=== PATIENT | male | born 1950 | race Hispanic/Latino ===

== ENCOUNTER 2019-09-19 14:18 | Inpatient (IN) | payer MEDICARE ==
[2019-09-19] MEDS ORDERED: MELATONIN 5 MG TAB PO PRN (14:31)
[2019-09-19] MEDS ORDERED: ZIPRASIDONE MESYLATE 20 MG VIAL IM PRN (14:31)
[2019-09-19] MEDS ORDERED: ALPRAZolam 0.5 MG TAB PO PRN (14:33)
[2019-09-19 21:34] LABS: Hematocrit 41.8 % (35.5-45.6); Hemoglobin 13.5 gm/dl (11.8-15.2); Mean Corpuscular HGB Conc 32 % (32-34); Mean Corpuscular Volume 105 fl (84-94); Platelet Count 239 K/mm3 (140-440); Red Blood Count 3.98 M/mm3 (3.65-5.03); Red Cell Distribution Width 13.7 % (13.2-15.2)
[2019-09-19 21:55] LABS: Alanine Aminotransferase 15 units/L (7-56); Albumin 3.3 g/dL (3.9-5); BUN/Creatinine Ratio 16; Blood Urea Nitrogen 14 mg/dL (9-20); Calcium 9.4 mg/dL (8.4-10.2); Chol/HDL Ratio 3.04 %; HDL Cholesterol 49 mg/dL (40-59); Hemolysis Index 14; LDL Cholesterol,Direct 92 mg/dL (50-130)
[2019-09-19 22:01] LABS: Bilirubin,Urine NEG (Negative); Blood,Urine NEG (Negative); Color,Urine Yellow (Yellow); Mucus,Urine FEW /HPF; Protein,Urine <15 mg/dL mg/dL (Negative); Urobilinogen,Urine < 2.0 mg/dL (<2.0); WBC,Urine < 1.0 /HPF (0.0-6.0)
[2019-09-19] MEDS: DOXEPIN 10 MG CAP PO SCH (22:06)
[2019-09-19 22:21] LABS: Basophils % (Manual) 0 % (0.0-1.8); Total Cells Counted 100
[2019-09-19 22:22] LABS: Anisocytosis 1+; Platelet Estimate Consistent w Auto
[2019-09-20] MEDS ORDERED: ALPRAZolam 0.5 MG TAB PO PRN (08:46)
--- NOTE | 2019-09-20 08:52 | History and Physical Report ---
GP History & Physical - History of Present Illness Date of admission: 09/19/19 Date of Examination: 09/20/19 Reason for Admission: Danger to self, Severe anxiety/depression History of Present Illness: Finesse Trimble is a 69y/o male patient who states he was admitted for "taking some pills." The patient says it was an "attempt to take my life." He is a/o x 4. He is dressed appropriately. He is talkative and pleasant. He makes good eye contact. He is calm and cooperative. Mr. Trimble says he's had "a number of setbacks medically." He says "because of this I OD intentional." He says "I do feel it was a big mistake, but I do think about dying and the afterlife." The patient denies ever attempting suicide or self harm behaviors in the past. He denies any illicit drug use, nicotine or alcohol use. He also denies any outpatient psychiatric treatment. The patient says he has a history of "depression" and he sees his "primary doctor to manage it." He says he is "somewhat depressed now and gets emotional talking about his health." The rubi ent states "I'm really anxious about the cancer." PAST PSYCHIATRIC HISTORY: Diagnoses: Depression, Anxiety Suicide attempts or Self-harm behavior: this time only Prior psychiatric hospitalizations: Denies Substance Abuse history: Denies Previous psychiatric medications tried: bety Meyers Outpatient treatment: Primary PAST MEDICAL HISTORY: Colon Cancer, HIV, BPH, HTN Family Psychiatric History None reported SOCIAL HISTORY Marital Status: Single Living Arrangements: Lives alone Employment Status: Retired Access to guns/weapons: Denied Education: 2 years of college History of Abuse: Denies Legal History: Denies ROS: Constitutional: Negative for weight loss ENT: Negative for stridor Respiratory: Negative for cough or hemoptysis All other systems reviewed and are negative MSE Appearance: Dressed appropriately, good eye contact Behavior: calm and cooperative Mood: "somewhat depressed" Affect: Congruent Thought Process: goal directed Speech: normal tone and pace Thought Content Suicidal: Suicide attempt, passive thoughts at present Homicidal: Denies Hallucinations: Denies Delusions: Denies Consciousness: Alert Cognition/Memory: Good Insight/Judgment: Limited Diagnoses: Diagnoses: Major Depressive Disorder, Severe, w/o Psychotic Features Treatment Plan Due to the psychiatric conditions and treatment listed in the Assessment and Plan - the patient requires continued hospitalization. Will continue inpatient treatment to allow for medication adjustment and monitoring. Will continue q15 min safety checks. Will encourage the use of environmental modifications and non-pharmacologic approaches for the management of behavioral and psychological symptoms. Medication adjustment made today Will continue current psych medications Monitor for medication side effects. The patient will continue on medications for physical illnesses, and Hospitalist will closely monitor these Continue intensive physical and occupational therapies. Monitor patient's mood, sleep, appetite, and behavior closely. Encourage patient to participate in individual and group therapeutic sessions on the lay. Will provide a safe and therapeutic environment for patient. This is an acknowledgement statement that Destinee Trimble is a 69y/o male who requires inpatient psychiatric admission for treatment which could reasonably be expected to improve the patient's condition for Major Depressive Disorder, Severe with a Suicidal Attempt. Estimated period of time patient will need to remain in the hospital: [7 ] Legal Status: Voluntary Reaction to Hospitalization: Accepting Medications and Allergies Allergies Allergy/AdvReac Type Severity Reaction Status Date / Time No Known Allergies Allergy Unverified 09/19/19 14:20 Home Medications Medication Instructions Recorded Confirmed Last Taken Type Ambien 10 mg PO HS 09/20/19 09/20/19 Unknown History Ciprofloxacin HCl 500 mg PO BID 09/20/19 09/20/19 Unknown History Descovy 200-25 mg Tablet 1 tab PO DAILY 09/20/19 09/20/19 Unknown History Eliquis 5 mg PO BID 09/20/19 09/20/19 Unknown History Lamictal 25 mg PO DAILY 09/20/19 09/20/19 Unknown History Losartan 25 mg PO DAILY 09/20/19 09/20/19 Unknown History Metoprolol Succinate 25 mg PO DAILY 09/20/19 09/20/19 Unknown History Metronidazole 500 mg PO Q8HR MDD 21 TABLETS 09/20/19 09/20/19 Unknown History Mirtazapine 7.5 mg PO QHS 09/20/19 09/20/19 Unknown History Pantoprazole Sodium 40 mg PO DAILY 09/20/19 09/20/19 Unknown History Sertraline 50 mg PO DAILY 09/20/19 09/20/19 Unknown History Tivicay 50 mg PO DAILY 09/20/19 09/20/19 Unknown History Xanax TAB 0.5 mg PO BID PRN 09/20/19 09/20/19 Unknown History Active Meds: Active Medications Alprazolam (Xanax) 0.5 mg PO BID PRN PRN Reason: Anxiety Apixaban (Eliquis) 5 mg PO Q12HR ALOK Doxepin HCl (Sinequan) 10 mg PO QHS ALOK Last Admin: 09/19/19 22:06 Dose: 10 mg Documented by: Melatonin (Melatonin) 5 mg PO QHS PRN PRN Reason: Sleep Last Admin: 09/19/19 22:06 Dose: 5 mg Documented by: Mirtazapine (Remeron) 7.5 mg PO QHS ALOK Miscellaneous Medication (Descovy 200-25 Mg Tablet) 1 tab PO DAILY ALOK Miscellaneous Medication (Lamictal) 25 mg PO DAILY ALOK Miscellaneous Medication (Losartan) 25 mg PO DAILY ALOK Miscellaneous Medication (Metoprolol Succinate) 25 mg PO DAILY ALOK Miscellaneous Medication (Pantoprazole Sodium) 40 mg PO DAILY ALOK Miscellaneous Medication (Tivicay) 50 mg PO DAILY ALOK Miscellaneous Medication (Xanax Tab) 0.5 mg PO BID PRN PRN Reason: Anxiety Sertraline HCl (Zoloft) 50 mg PO QDAY ALOK Ziprasidone (Geodon) 10 mg IM Q4H PRN PRN Reason: Agitation Results - Results Labs/Vitals: Laboratory Last Values WBC 13.0 K/mm3 (4.5-11.0) H 09/19/19 21:05 RBC 3.98 M/mm3 (3.65-5.03) 09/19/19 21:05 Hgb 13.5 gm/dl (11.8-15.2) 09/19/19 21:05 Hct 41.8 % (35.5-45.6) 09/19/19 21:05 MCV 105 fl (84-94) H 09/19/19 21:05 MCH 34 pg (28-32) H 09/19/19 21:05 MCHC 32 % (32-34) 09/19/19 21:05 RDW 13.7 % (13.2-15.2) 09/19/19 21:05 Plt Count 239 K/mm3 (140-440) 09/19/19 21:05 Lymph # Modeling Analyst 09/19/19 21:05 Add Manual Diff Complete 09/19/19 21:05 Total Counted 100 09/19/19 21:05 Seg Neuts % (Manual) 53.0 % (40.0-70.0) 09/19/19 21:05 Band Neutrophils % 0 % 09/19/19 21:05 Lymphocytes % (Manual) 33.0 % (13.4-35.0) 09/19/19 21:05 Reactive Lymphs % (Man) 0 % 09/19/19 21:05 Monocytes % (Manual) 11.0 % (0.0-7.3) H 09/19/19 21:05 Eosinophils % (Manual) 3.0 % (0.0-4.3) 09/19/19 21:05 Basophils % (Manual) 0 % (0.0-1.8) 09/19/19 21:05 Metamyelocytes % 0 % 09/19/19 21:05 Myelocytes % 0 % 09/19/19 21:05 Promyelocytes % 0 % 09/19/19 21:05 Blast Cells % 0 % 09/19/19 21:05 Nucleated RBC % Not Reportable 09/19/19 21:05 Seg Neutrophils # Man 6.9 K/mm3 (1.8-7.7) 09/19/19 21:05 Band Neutrophils # 0.0 K/mm3 09/19/19 21:05 Lymphocytes # (Manual) 4.3 K/mm3 (1.2-5.4) 09/19/19 21:05 Abs React Lymphs (Man) 0.0 K/mm3 09/19/19 21:05 Monocytes # (Manual) 1.4 K/mm3 (0.0-0.8) H 09/19/19 21:05 Eosinophils # (Manual) 0.4 K/mm3 (0.0-0.4) 09/19/19 21:05 Basophils # (Manual) 0.0 K/mm3 (0.0-0.1) 09/19/19 21:05 Metamyelocytes # 0.0 K/mm3 09/19/19 21:05 Myelocytes # 0.0 K/mm3 09/19/19 21:05 Promyelocytes # 0.0 K/mm3 09/19/19 21:05 Blast Cells # 0.0 K/mm3 09/19/19 21:05 WBC Morphology Not Reportable 09/19/19 21:05 Hypersegmented Neuts Not Reportable 09/19/19 21:05 Hyposegmented Neuts Not Reportable 09/19/19 21:05 Hypogranular Neuts Not Reportable 09/19/19 21:05 Smudge Cells Not Reportable 09/19/19 21:05 Toxic Granulation Not Reportable 09/19/19 21:05 Toxic Vacuolation Not Reportable 09/19/19 21:05 Dohle Bodies Not Reportable 09/19/19 21:05 Pelger-Huet Anomaly Not Reportable 09/19/19 21:05 Mingo Rods Not Reportable 09/19/19 21:05 Platelet Estimate Consistent w auto 09/19/19 21:05 Clumped Platelets Not Reportable 09/19/19 21:05 Plt Clumps, EDTA Not Reportable 09/19/19 21:05 Large Platelets Not Reportable 09/19/19 21:05 Giant Platelets Not Reportable 09/19/19 21:05 Platelet Satelliting Not Reportable 09/19/19 21:05 Plt Morphology Comment Not Reportable 09/19/19 21:05 RBC Morphology Not Reportable 09/19/19 21:05 Dimorphic RBCs Not Reportable 09/19/19 21:05 Polychromasia Not Reportable 09/19/19 21:05 Hypochromasia Not Reportable 09/19/19 21:05 Poikilocytosis Not Reportable 09/19/19 21:05 Anisocytosis 1+ 09/19/19 21:05 Microcytosis Not Reportable 09/19/19 21:05 Macrocytosis Not Reportable 09/19/19 21:05 Spherocytes Not Reportable 09/19/19 21:05 Pappenheimer Bodies Not Reportable 09/19/19 21:05 Sickle Cells Not Reportable 09/19/19 21:05 Target Cells Not Reportable 09/19/19 21:05 Tear Drop Cells Not Reportable 09/19/19 21:05 Ovalocytes Not Reportable 09/19/19 21:05 Helmet Cells Not Reportable 09/19/19 21:05 Reddy-[place] Bodies Not Reportable 09/19/19 21:05 [place] Rings Not Reportable 09/19/19 21:05 [place] Cells Not Reportable 09/19/19 21:05 Bite Cells Not Reportable 09/19/19 21:05 Crenated Cell Not Reportable 09/19/19 21:05 Elliptocytes Not Reportable 09/19/19 21:05 Acanthocytes (Spur) Not Reportable 09/19/19 21:05 Rouleaux Not Reportable 09/19/19 21:05 Hemoglobin C Crystals Not Reportable 09/19/19 21:05 Schistocytes Not Reportable 09/19/19 21:05 Malaria parasites Not Reportable 09/19/19 21:05 Dennis Bodies Not Reportable 09/19/19 21:05 Hem Pathologist Commnt No 09/19/19 21:05 Sodium 140 mmol/L (137-145) 09/19/19 21:05 Potassium 4.4 mmol/L (3.6-5.0) 09/19/19 21:05 Chloride 100.7 mmol/L (98-107) 09/19/19 21:05 Carbon Dioxide 25 mmol/L (22-30) 09/19/19 21:05 Anion Gap 19 mmol/L 09/19/19 21:05 BUN 14 mg/dL (9-20) 09/19/19 21:05 Creatinine 0.9 mg/dL (0.8-1.5) 09/19/19 21:05 Estimated GFR > 60 ml/min 09/19/19 21:05 BUN/Creatinine Ratio 16 % 09/19/19 21:05 Glucose 145 mg/dL (75-100) H 09/19/19 21:05 POC Glucose 157 (70-105) H 09/19/19 22:02 Hemoglobin A1c 4.9 % (4-6) 09/19/19 21:05 Calcium 9.4 mg/dL (8.4-10.2) 09/19/19 21:05 Total Bilirubin 0.50 mg/dL (0.1-1.2) 09/19/19 21:05 AST 33 units/L (5-40) 09/19/19 21:05 ALT 15 units/L (7-56) 09/19/19 21:05 Alkaline Phosphatase 73 units/L (35-129) 09/19/19 21:05 Total Protein 7.5 g/dL (6.3-8.2) 09/19/19 21:05 Albumin 3.3 g/dL (3.9-5) L 02/21/20 21:05 Albumin/Globulin Ratio 0.8 % 09/19/19 21:05 Triglycerides 59 mg/dL (2-149) 09/19/19 21:05 Cholesterol 149 mg/dL (50-199) 09/19/19 21:05 LDL Cholesterol Direct 92 mg/dL (50-130) 09/19/19 21:05 HDL Cholesterol 49 mg/dL (40-59) 09/19/19 21:05 Cholesterol/HDL Ratio 3.04 % 09/19/19 21:05 TSH 4.370 mlU/mL (0.270-4.200) H 09/19/19 21:05 Urine Color Yellow (Yellow) 09/19/19 Unknown Urine Turbidity Clear (Clear) 09/19/19 Unknown Urine pH 8.0 (5.0-7.0) H 09/19/19 Unknown Ur Specific [place] 1.009 (1.003-1.030) 09/19/19 Unknown Urine Protein <15 mg/dl mg/dL (Negative) 09/19/19 Unknown Urine Glucose (UA) Neg mg/dL (Negative) 09/19/19 Unknown Urine Ketones Neg mg/dL (Negative) 09/19/19 Unknown Urine Blood Neg (Negative) 09/19/19 Unknown Urine Nitrite Neg (Negative) 09/19/19 Unknown Urine Bilirubin Neg (Negative) 09/19/19 Unknown Urine Urobilinogen < 2.0 mg/dL (<2.0) 09/19/19 Unknown Ur Leukocyte Esterase Neg (Negative) 09/19/19 Unknown Urine WBC (Auto) < 1.0 /HPF (0.0-6.0) 09/19/19 Unknown Urine RBC (Auto) 4.0 /HPF (0.0-6.0) 09/19/19 Unknown Urine Mucus Few /HPF 09/19/19 Unknown Last Vital Signs Temp 97.7 F 09/19/19 22:00 Pulse 64 09/19/19 22:00 Resp 18 09/19/19 22:00 BP 156/70 09/19/19 22:00 Pulse Ox 91 09/19/19 22:00 Physical Examination - Constitutional Vitals: Vital Signs Temp Pulse Resp BP Pulse Ox 97.7 F 64 18 156/70 91 09/19/19 22:00 09/19/19 22:00 09/19/19 22:00 09/19/19 22:00 09/19/19 22:00 Temperature -Last 24 Hours Temperature 97.7 F Mental Status Exam - Vital signs Last Vital Signs Temp 97.7 F 09/19/19 22:00 Pulse 64 09/19/19 22:00 Resp 18 09/19/19 22:00 BP 156/70 09/19/19 22:00 Pulse Ox 91 09/19/19 22:00 Physician Certification - Certification Statement Physician Certification Statement: This is an acknowledgement statement that FINESSE TRIMBLE is a 69 year old M who requires inpatient psychiatric admission for treatment which could reasonably be expected to improve the patient's condition for Estimated period of time patient will need to remain in the hospital: [ ] Plan for post-hospital care: [ ]
[2019-09-20] MEDS ORDERED: SERTRALINE 25 MG TAB PO SCH (10:00)
[2019-09-20] MEDS ORDERED: SERTRALINE 50 MG TAB PO SCH (10:00)
[2019-09-20] MEDS: APIXABAN 5 MG TAB PO SCH ×2 (10:21→21:46)
[2019-09-20] MEDS: lamoTRIgine 25 MG TAB PO SCH (10:21)
[2019-09-20] MEDS: SERTRALINE 50 MG TAB PO SCH (10:21)
[2019-09-20] MEDS: PANTOPRAZOLE 40 MG TAB PO SCH (10:21)
[2019-09-20] MEDS: METOPROLOL SUCCINATE XL 25 MG TAB PO SCH (10:22)
[2019-09-20] MEDS: LOSARTAN 25 MG TAB PO SCH (10:22)
[2019-09-20] MEDS: TIVICAY 50 MG PO SCH (10:23)
[2019-09-20] MEDS: DESCOVY PO SCH (10:24)
--- NOTE | 2019-09-20 11:43 | Consultation ---
History of Present Illness - Reason for Consult Consult date: 09/20/19 - History of Present Illness 69-year-old male with past medical history of major depression, cardiomyopathy, colon cancer, HIV, BPH and hypertension who presented to the [facility] psych unit with suicide attempt after attempting to take "some pills". The patient denies any complaints of chest pain or shortness of breath. No headache or visual disturbances. No cough or cold-like symptoms. No fever chills. Consultation was called for the hospitalist service for management of his above medical problems. Past History Past Medical History: HIV/AIDS, hypertension, other (Depression, BPH, colon cancer) Past Surgical History: Other (Rectal surgery) Social history: no significant social history Family history: no significant family history Medications and Allergies Allergies Allergy/AdvReac Type Severity Reaction Status Date / Time No Known Allergies Allergy Unverified 09/19/19 14:20 Home Medications Medication Instructions Recorded Confirmed Last Taken Type Ambien 10 mg PO HS 09/20/19 09/20/19 Unknown History Ciprofloxacin HCl 500 mg PO BID 09/20/19 09/20/19 Unknown History Descovy 200-25 mg Tablet 1 tab PO DAILY 09/20/19 09/20/19 Unknown History Eliquis 5 mg PO BID 09/20/19 09/20/19 Unknown History Lamictal 25 mg PO DAILY 09/20/19 09/20/19 Unknown History Losartan 25 mg PO DAILY 09/20/19 09/20/19 Unknown History Metoprolol Succinate 25 mg PO DAILY 09/20/19 09/20/19 Unknown History Metronidazole 500 mg PO Q8HR MDD 21 TABLETS 09/20/19 09/20/19 Unknown History Mirtazapine 7.5 mg PO QHS 09/20/19 09/20/19 Unknown History Pantoprazole Sodium 40 mg PO DAILY 09/20/19 09/20/19 Unknown History Sertraline 50 mg PO DAILY 09/20/19 09/20/19 Unknown History Tivicay 50 mg PO DAILY 09/20/19 09/20/19 Unknown History Xanax TAB 0.5 mg PO BID PRN 09/20/19 09/20/19 Unknown History Active Meds: Active Medications Alprazolam (Xanax) 0.5 mg PO BID PRN PRN Reason: Anxiety Apixaban (Eliquis) 5 mg PO Q12HR ALOK Last Admin: 09/20/19 10:21 Dose: 5 mg Documented by: Doxepin HCl (Sinequan) 10 mg PO QHS [facility] Last Admin: 09/19/19 22:06 Dose: 10 mg Documented by: Lamotrigine (Lamictal) 25 mg PO QDAY [facility] Last Admin: 09/20/19 10:21 Dose: 25 mg Documented by: Losartan Potassium (Cozaar) 25 mg PO QDAY [facility] Last Admin: 09/20/19 10:22 Dose: 25 mg Documented by: Melatonin (Melatonin) 5 mg PO QHS PRN PRN Reason: Sleep Last Admin: 09/19/19 22:06 Dose: 5 mg Documented by: Metoprolol Succinate (Metoprolol Xl) 25 mg PO QDAY [facility] Last Admin: 09/20/19 10:22 Dose: 25 mg Documented by: Mirtazapine (Remeron) 7.5 mg PO QHS [facility] Miscellaneous Medication (Descovy 200-25 Mg Tablet) 1 tab PO DAILY [facility] Last Admin: 09/20/19 10:24 Dose: 1 tab Documented by: Miscellaneous Medication (Tivicay) 50 mg PO DAILY [facility] Last Admin: 09/20/19 10:23 Dose: 50 mg Documented by: Pantoprazole Sodium (Protonix) 40 mg PO DAILY [facility] Last Admin: 09/20/19 10:21 Dose: 40 mg Documented by: Sertraline HCl (Zoloft) 100 mg PO QDAY [facility] Last Admin: 09/20/19 10:21 Dose: 100 mg Documented by: Ziprasidone (Geodon) 10 mg IM Q4H PRN PRN Reason: Agitation Review of Systems All systems: negative Exam - Constitutional Vitals: Temp Pulse Resp BP Pulse Ox 97.7 F 68 18 135/64 91 09/19/19 22:00 09/20/19 10:22 09/19/19 22:00 09/20/19 10:22 09/19/19 22:00 General appearance: Present: no acute distress, well-nourished - EENT Eyes: Present: PERRL ENT: hearing intact, clear oral mucosa - Neck Neck: Present: supple, normal ROM - Respiratory Respiratory effort: normal Respiratory: bilateral: CTA - Cardiovascular Heart Sounds: Present: S1 & S2. Absent: rub, click - Extremities Extremities: pulses symmetrical, No edema Peripheral Pulses: within normal limits - Abdominal General gastrointestinal: Present: soft, non-tender, non-distended, normal bowel sounds Male genitourinary: Present: normal - Integumentary Integumentary: Present: clear, warm, dry - Musculoskeletal Musculoskeletal: gait normal, strength equal bilaterally - Psychiatric Psychiatric: appropriate mood/affect, intact judgment & insight - Neurologic Neurologic: CNII-XII intact, moves all extremities Results - Labs CBC & Chem 7: 09/19/19 21:05 09/19/19 21:05 Labs: Abnormal lab results 09/19/19 09/19/19 09/19/19 Range/Units 21:05 21:05 21:05 WBC 13.0 H (4.5-11.0) K/mm3 MCV 105 H (84-94) fl MCH 34 H (28-32) pg Monocytes % (Manual) 11.0 H (0.0-7.3) % Monocytes # (Manual) 1.4 H (0.0-0.8) K/mm3 Glucose 145 H (75-100) mg/dL POC Glucose (70-105) Albumin 3.3 L (3.9-5) g/dL TSH 4.370 H (0.270-4.200) mlU/mL Urine pH (5.0-7.0) 09/19/19 09/19/19 Range/Units 22:02 Unknown WBC (4.5-11.0) K/mm3 MCV (84-94) fl MCH (28-32) pg Monocytes % (Manual) (0.0-7.3) % Monocytes # (Manual) (0.0-0.8) K/mm3 Glucose (75-100) mg/dL POC Glucose 157 H (70-105) Albumin (3.9-5) g/dL TSH (0.270-4.200) mlU/mL Urine pH 8.0 H (5.0-7.0) Assessment and Plan Major depression/suicide attempt. Continue per psychiatry. Hypertension. Resume antihypertensive medications. HIV. Continue medications. Cardiomyopathy. Continue medications and anticoagulation.
[2019-09-20] MEDS: MIRTAZAPINE 15 MG TAB PO SCH (21:38)
[2019-09-20] MEDS: DOXEPIN 10 MG CAP PO SCH ×2 (21:38→21:43)
[2019-09-21] MEDS: APIXABAN 5 MG TAB PO SCH ×2 (09:32→21:52)
[2019-09-21] MEDS: DESCOVY PO SCH (09:33)
[2019-09-21] MEDS: TIVICAY 50 MG PO SCH (09:33)
[2019-09-21] MEDS: lamoTRIgine 25 MG TAB PO SCH (09:34)
[2019-09-21] MEDS: SERTRALINE 50 MG TAB PO SCH (09:34)
[2019-09-21] MEDS: PANTOPRAZOLE 40 MG TAB PO SCH (09:34)
[2019-09-21] MEDS: LOSARTAN 25 MG TAB PO SCH (09:36)
[2019-09-21] MEDS: METOPROLOL SUCCINATE XL 25 MG TAB PO SCH (09:36)
--- NOTE | 2019-09-21 09:37 | Progress Note ---
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 He is pleasant, calm and cooperative. He makes good eye contact. He says his "night went pretty good." He says his mood "is actually pretty good today, but at times depressed." The patient says his appetite is "okay." He says "I don't finish my food. It's too much." He denies hallucinations of any kind. When asking about thoughts of self harm or thoughts of dying, the patient replied "well, I know I talked about it yesterday, but today I don't feel that way." He says "I know it's my situation that makes me think about it sometimes." He says "too much hits at one time." Reason for continued inpatient treatment: The patient still has depression, and appears to have passive thoughts of dying on and off. ROS: Constitutional: Negative for weight loss ENT: Negative for stridor Respiratory: Negative for cough or hemoptysis All other systems reviewed and are negative MSE Appearance: Dressed appropriately, good eye contact Behavior: calm and cooperative Mood: "somewhat depressed" Affect: Congruent Thought Process: goal directed Speech: normal tone and pace Thought Content Suicidal: Suicide attempt, passive thoughts at present Homicidal: Denies Hallucinations: Denies Delusions: Denies Consciousness: Alert Cognition/Memory: Good Insight/Judgment: Limited Diagnoses: Diagnoses: Major Depressive Disorder, Severe, w/o Psychotic Features Treatment Plan Due to the psychiatric conditions and treatment listed in the Assessment and Plan - the patient requires continued hospitalization. Will continue inpatient treatment to allow for medication adjustment and monitoring. Will continue q15 min safety checks. Will encourage the use of environmental modifications and non-pharmacologic approaches for the management of behavioral and psychological symptoms. Medication adjustment made today: No changes made today. Increased Zoloft to 100mg po daily yesterday to improve depressive symptoms Will continue current psych medications Monitor for medication side effects. The patient will continue on medications for physical illnesses, and Hospitalist will closely monitor these Continue intensive physical and occupational therapies. Monitor patient's mood, sleep, appetite, and behavior closely. Encourage patient to participate in individual and group therapeutic sessions on the lay. Will provide a safe and therapeutic environment for patient. Medications and Allergies Allergies Allergy/AdvReac Type Severity Reaction Status Date / Time No Known Allergies Allergy Unverified 09/19/19 14:20 Home Medications Medication Instructions Recorded Confirmed Last Taken Type Ambien 10 mg PO HS 09/20/19 09/20/19 Unknown History Ciprofloxacin HCl 500 mg PO BID 09/20/19 09/20/19 Unknown History Descovy 200-25 mg Tablet 1 tab PO DAILY 09/20/19 09/20/19 Unknown History Eliquis 5 mg PO BID 09/20/19 09/20/19 Unknown History Lamictal 25 mg PO DAILY 09/20/19 09/20/19 Unknown History Losartan 25 mg PO DAILY 09/20/19 09/20/19 Unknown History Metoprolol Succinate 25 mg PO DAILY 09/20/19 09/20/19 Unknown History Metronidazole 500 mg PO Q8HR MDD 21 TABLETS 09/20/19 09/20/19 Unknown History Mirtazapine 7.5 mg PO QHS 09/20/19 09/20/19 Unknown History Pantoprazole Sodium 40 mg PO DAILY 09/20/19 09/20/19 Unknown History Sertraline 50 mg PO DAILY 09/20/19 09/20/19 Unknown History Tivicay 50 mg PO DAILY 09/20/19 09/20/19 Unknown History Xanax TAB 0.5 mg PO BID PRN 09/20/19 09/20/19 Unknown History Active Meds: Active Medications Alprazolam (Xanax) 0.5 mg PO BID PRN PRN Reason: Anxiety Apixaban (Eliquis) 5 mg PO Q12HR [facility] Last Admin: 09/20/19 21:46 Dose: 5 mg Documented by: Doxepin HCl (Sinequan) 10 mg PO QHS [facility] Last Admin: 09/20/19 21:43 Dose: 10 mg Documented by: Lamotrigine (Lamictal) 25 mg PO QDAY [facility] Last Admin: 09/20/19 10:21 Dose: 25 mg Documented by: Losartan Potassium (Cozaar) 25 mg PO QDAY [facility] Last Admin: 09/20/19 10:22 Dose: 25 mg Documented by: Melatonin (Melatonin) 5 mg PO QHS PRN PRN Reason: Sleep Last Admin: 09/19/19 22:06 Dose: 5 mg Documented by: Metoprolol Succinate (Metoprolol Xl) 25 mg PO QDAY [facility] Last Admin: 09/20/19 10:22 Dose: 25 mg Documented by: Mirtazapine (Remeron) 7.5 mg PO QHS [facility] Last Admin: 09/20/19 21:38 Dose: 7.5 mg Documented by: Miscellaneous Medication (Descovy 200-25 Mg Tablet) 1 tab PO DAILY [facility] Last Admin: 09/20/19 10:24 Dose: 1 tab Documented by: Miscellaneous Medication (Tivicay) 50 mg PO DAILY [facility] Last Admin: 09/20/19 10:23 Dose: 50 mg Documented by: Pantoprazole Sodium (Protonix) 40 mg PO DAILY [facility] Last Admin: 09/20/19 10:21 Dose: 40 mg Documented by: Sertraline HCl (Zoloft) 100 mg PO QDAY [facility] Last Admin: 09/20/19 10:21 Dose: 100 mg Documented by: Ziprasidone (Geodon) 10 mg IM Q4H PRN PRN Reason: Agitation Results - Results Labs/Vitals: Laboratory Last Values WBC 13.0 K/mm3 (4.5-11.0) H 09/19/19 21:05 RBC 3.98 M/mm3 (3.65-5.03) 09/19/19 21:05 Hgb 13.5 gm/dl (11.8-15.2) 09/19/19 21:05 Hct 41.8 % (35.5-45.6) 09/19/19 21:05 MCV 105 fl (84-94) H 09/19/19 21:05 MCH 34 pg (28-32) H 09/19/19 21:05 MCHC 32 % (32-34) 09/19/19 21:05 RDW 13.7 % (13.2-15.2) 09/19/19 21:05 Plt Count 239 K/mm3 (140-440) 09/19/19 21:05 Lymph # Psychic Reader 09/19/19 21:05 Add Manual Diff Complete 09/19/19 21:05 Total Counted 100 09/19/19 21:05 Seg Neuts % (Manual) 53.0 % (40.0-70.0) 09/19/19 21:05 Band Neutrophils % 0 % 09/19/19 21:05 Lymphocytes % (Manual) 33.0 % (13.4-35.0) 09/19/19 21:05 Reactive Lymphs % (Man) 0 % 09/19/19 21:05 Monocytes % (Manual) 11.0 % (0.0-7.3) H 09/19/19 21:05 Eosinophils % (Manual) 3.0 % (0.0-4.3) 09/19/19 21:05 Basophils % (Manual) 0 % (0.0-1.8) 09/19/19 21:05 Metamyelocytes % 0 % 09/19/19 21:05 Myelocytes % 0 % 09/19/19 21:05 Promyelocytes % 0 % 09/19/19 21:05 Blast Cells % 0 % 09/19/19 21:05 Nucleated RBC % Not Reportable 09/19/19 21:05 Seg Neutrophils # Man 6.9 K/mm3 (1.8-7.7) 09/19/19 21:05 Band Neutrophils # 0.0 K/mm3 09/19/19 21:05 Lymphocytes # (Manual) 4.3 K/mm3 (1.2-5.4) 09/19/19 21:05 Abs React Lymphs (Man) 0.0 K/mm3 09/19/19 21:05 Monocytes # (Manual) 1.4 K/mm3 (0.0-0.8) H 09/19/19 21:05 Eosinophils # (Manual) 0.4 K/mm3 (0.0-0.4) 09/19/19 21:05 Basophils # (Manual) 0.0 K/mm3 (0.0-0.1) 09/19/19 21:05 Metamyelocytes # 0.0 K/mm3 09/19/19 21:05 Myelocytes # 0.0 K/mm3 09/19/19 21:05 Promyelocytes # 0.0 K/mm3 09/19/19 21:05 Blast Cells # 0.0 K/mm3 09/19/19 21:05 WBC Morphology Not Reportable 09/19/19 21:05 Hypersegmented Neuts Not Reportable 09/19/19 21:05 Hyposegmented Neuts Not Reportable 09/19/19 21:05 Hypogranular Neuts Not Reportable 09/19/19 21:05 Smudge Cells Not Reportable 09/19/19 21:05 Toxic Granulation Not Reportable 09/19/19 21:05 Toxic Vacuolation Not Reportable 09/19/19 21:05 Dohle Bodies Not Reportable 09/19/19 21:05 Pelger-Huet Anomaly Not Reportable 09/19/19 21:05 Mingo Rods Not Reportable 09/19/19 21:05 Platelet Estimate Consistent w auto 09/19/19 21:05 Clumped Platelets Not Reportable 09/19/19 21:05 Plt Clumps, EDTA Not Reportable 09/19/19 21:05 Large Platelets Not Reportable 09/19/19 21:05 Giant Platelets Not Reportable 09/19/19 21:05 Platelet Satelliting Not Reportable 09/19/19 21:05 Plt Morphology Comment Not Reportable 09/19/19 21:05 RBC Morphology Not Reportable 09/19/19 21:05 Dimorphic RBCs Not Reportable 09/19/19 21:05 Polychromasia Not Reportable 09/19/19 21:05 Hypochromasia Not Reportable 09/19/19 21:05 Poikilocytosis Not Reportable 09/19/19 21:05 Anisocytosis 1+ 09/19/19 21:05 Microcytosis Not Reportable 09/19/19 21:05 Macrocytosis Not Reportable 09/19/19 21:05 Spherocytes Not Reportable 09/19/19 21:05 Pappenheimer Bodies Not Reportable 09/19/19 21:05 Sickle Cells Not Reportable 09/19/19 21:05 Target Cells Not Reportable 09/19/19 21:05 Tear Drop Cells Not Reportable 09/19/19 21:05 Ovalocytes Not Reportable 09/19/19 21:05 Helmet Cells Not Reportable 09/19/19 21:05 [place] Bodies Not Reportable 09/19/19 21:05 [place] Rings Not Reportable 09/19/19 21:05 [place] Cells Not Reportable 09/19/19 21:05 Bite Cells Not Reportable 09/19/19 21:05 Crenated Cell Not Reportable 09/19/19 21:05 Elliptocytes Not Reportable 09/19/19 21:05 Acanthocytes (Spur) Not Reportable 09/19/19 21:05 Rouleaux Not Reportable 09/19/19 21:05 Hemoglobin C Crystals Not Reportable 09/19/19 21:05 Schistocytes Not Reportable 09/19/19 21:05 Malaria parasites Not Reportable 09/19/19 21:05 [place] Bodies Not Reportable 09/19/19 21:05 Hem Pathologist Commnt No 09/19/19 21:05 Sodium 140 mmol/L (137-145) 09/19/19 21:05 Potassium 4.4 mmol/L (3.6-5.0) 09/19/19 21:05 Chloride 100.7 mmol/L (98-107) 09/19/19 21:05 Carbon Dioxide 25 mmol/L (22-30) 09/19/19 21:05 Anion Gap 19 mmol/L 09/19/19 21:05 BUN 14 mg/dL (9-20) 09/19/19 21:05 Creatinine 0.9 mg/dL (0.8-1.5) 09/19/19 21:05 Estimated GFR > 60 ml/min 09/19/19 21:05 BUN/Creatinine Ratio 16 % 09/19/19 21:05 Glucose 145 mg/dL (75-100) H 09/19/19 21:05 POC Glucose 157 (70-105) H 09/19/19 22:02 Hemoglobin A1c 4.9 % (4-6) 09/19/19 21:05 Calcium 9.4 mg/dL (8.4-10.2) 09/19/19 21:05 Total Bilirubin 0.50 mg/dL (0.1-1.2) 09/19/19 21:05 AST 33 units/L (5-40) 09/19/19 21:05 ALT 15 units/L (7-56) 09/19/19 21:05 Alkaline Phosphatase 73 units/L (35-129) 09/19/19 21:05 Total Protein 7.5 g/dL (6.3-8.2) 09/19/19 21:05 Albumin 3.3 g/dL (3.9-5) L 09/19/19 21:05 Albumin/Globulin Ratio 0.8 % 09/19/19 21:05 Triglycerides 59 mg/dL (2-149) 09/19/19 21:05 Cholesterol 149 mg/dL (50-199) 09/19/19 21:05 LDL Cholesterol Direct 92 mg/dL (50-130) 09/19/19 21:05 HDL Cholesterol 49 mg/dL (40-59) 09/19/19 21:05 Cholesterol/HDL Ratio 3.04 % 09/19/19 21:05 TSH 4.370 mlU/mL (0.270-4.200) H 09/19/19 21:05 Urine Color Yellow (Yellow) 09/19/19 Unknown Urine Turbidity Clear (Clear) 09/19/19 Unknown Urine pH 8.0 (5.0-7.0) H 09/19/19 Unknown Ur Specific [place] 1.009 (1.003-1.030) 09/19/19 Unknown Urine Protein <15 mg/dl mg/dL (Negative) 09/19/19 Unknown Urine Glucose (UA) Neg mg/dL (Negative) 09/19/19 Unknown Urine Ketones Neg mg/dL (Negative) 09/19/19 Unknown Urine Blood Neg (Negative) 09/19/19 Unknown Urine Nitrite Neg (Negative) 09/19/19 Unknown Urine Bilirubin Neg (Negative) 09/19/19 Unknown Urine Urobilinogen < 2.0 mg/dL (<2.0) 09/19/19 Unknown Ur Leukocyte Esterase Neg (Negative) 09/19/19 Unknown Urine WBC (Auto) < 1.0 /HPF (0.0-6.0) 09/19/19 Unknown Urine RBC (Auto) 4.0 /HPF (0.0-6.0) 09/19/19 Unknown Urine Mucus Few /HPF 09/19/19 Unknown Last Vital Signs Temp 97.7 F 09/19/19 22:00 Pulse 63 09/20/19 19:06 Resp 18 09/19/19 22:00 BP 119/61 09/20/19 19:06 Pulse Ox 97 09/21/19 09:09
[2019-09-21] MEDS: MIRTAZAPINE 15 MG TAB PO SCH (21:52)
[2019-09-21] MEDS: DOXEPIN 10 MG CAP PO SCH (21:52)
--- NOTE | 2019-09-22 09:32 | Progress Note ---
Subjective Date of service: 09/22/19 Principal diagnosis: Major Depressive Disorder, Severe w/o Psychotic Features Subjective Comment: During my interview with the patient this morning, he is lying in bed. Awake. Pleasant, calm and cooperative. He is a/o x 3. He says he's "good and feels a lot better." He says he "slept okay, but could have been better. He denies hallucinations of any kind. When asked about suicidal ideation or any self-harm thoughts, the patient states, "at the time it all just hit me so hard when they told me about the cancer." He says "I didn't know how to deal with that happening to me, I think I will be okay." When asking about any passive thoughts of dying, the patient says "I don't believe so." Reason for continued inpatient treatment: The patient has improved significantly, but appears to be uncertain at times. ROS: Constitutional: Negative for weight loss ENT: Negative for stridor Respiratory: Negative for cough or hemoptysis All other systems reviewed and are negative MSE Appearance: Dressed appropriately, good eye contact Behavior: calm and cooperative Mood: "good, alot better" Affect: Congruent Thought Process: goal directed Speech: normal tone and pace Thought Content Suicidal: Appears to be somewhat uncertain Homicidal: Denies Hallucinations: Denies Delusions: Denies Consciousness: Alert Cognition/Memory: Good Insight/Judgment: Limited Diagnoses: Diagnoses: Major Depressive Disorder, Severe, w/o Psychotic Features Treatment Plan Due to the psychiatric conditions and treatment listed in the Assessment and Plan - the patient requires continued hospitalization. Will continue inpatient treatment to allow for medication adjustment and monitoring. Will continue q15 min safety checks. Will encourage the use of environmental modifications and non-pharmacologic approaches for the management of behavioral and psychological symptoms. Medication adjustment made today: Zoloft was increased, 09/20. The patient seems to be improving from the increase. Will continue current psych medications Monitor for medication side effects. The patient will continue on medications for physical illnesses, and Hospitalist will closely monitor these Continue intensive physical and occupational therapies. Monitor patient's mood, sleep, appetite, and behavior closely. Encourage patient to participate in individual and group therapeutic sessions on the lay. Will provide a safe and therapeutic environment for patient. Medications and Allergies Allergies Allergy/AdvReac Type Severity Reaction Status Date / Time No Known Allergies Allergy Unverified 09/19/19 14:20 Home Medications Medication Instructions Recorded Confirmed Last Taken Type Ambien 10 mg PO HS 09/20/19 09/20/19 Unknown History Ciprofloxacin HCl 500 mg PO BID 09/20/19 09/20/19 Unknown History Descovy 200-25 mg Tablet 1 tab PO DAILY 09/20/19 09/20/19 Unknown History Eliquis 5 mg PO BID 09/20/19 09/20/19 Unknown History Lamictal 25 mg PO DAILY 09/20/19 09/20/19 Unknown History Losartan 25 mg PO DAILY 09/20/19 09/20/19 Unknown History Metoprolol Succinate 25 mg PO DAILY 09/20/19 09/20/19 Unknown History Metronidazole 500 mg PO Q8HR MDD 21 TABLETS 09/20/19 09/20/19 Unknown History Mirtazapine 7.5 mg PO QHS 09/20/19 09/20/19 Unknown History Pantoprazole Sodium 40 mg PO DAILY 09/20/19 09/20/19 Unknown History Sertraline 50 mg PO DAILY 09/20/19 09/20/19 Unknown History Tivicay 50 mg PO DAILY 09/20/19 09/20/19 Unknown History Xanax TAB 0.5 mg PO BID PRN 09/20/19 09/20/19 Unknown History Active Meds: Active Medications Alprazolam (Xanax) 0.5 mg PO BID PRN PRN Reason: Anxiety Apixaban (Eliquis) 5 mg PO Q12HR [facility] Last Admin: 09/21/19 21:52 Dose: 5 mg Documented by: Doxepin HCl (Sinequan) 10 mg PO QHS [facility] Last Admin: 09/21/19 21:52 Dose: 10 mg Documented by: Lamotrigine (Lamictal) 25 mg PO QDAY [facility] Last Admin: 09/21/19 09:34 Dose: 25 mg Documented by: Losartan Potassium (Cozaar) 25 mg PO QDAY [facility] Last Admin: 09/21/19 09:36 Dose: Not Given Documented by: Melatonin (Melatonin) 5 mg PO QHS PRN PRN Reason: Sleep Last Admin: 09/19/19 22:06 Dose: 5 mg Documented by: Metoprolol Succinate (Metoprolol Xl) 25 mg PO QDAY [facility] Last Admin: 09/21/19 09:36 Dose: Not Given Documented by: Mirtazapine (Remeron) 7.5 mg PO QHS [facility] Last Admin: 09/21/19 21:52 Dose: 7.5 mg Documented by: Miscellaneous Medication (Descovy 200-25 Mg Tablet) 1 tab PO DAILY [facility] Last Admin: 09/21/19 09:33 Dose: 1 tab Documented by: Miscellaneous Medication (Tivicay) 50 mg PO DAILY [facility] Last Admin: 09/21/19 09:33 Dose: 50 mg Documented by: Pantoprazole Sodium (Protonix) 40 mg PO DAILY [facility] Last Admin: 09/21/19 09:34 Dose: 40 mg Documented by: Sertraline HCl (Zoloft) 100 mg PO QDAY [facility] Last Admin: 09/21/19 09:34 Dose: 100 mg Documented by: Ziprasidone (Geodon) 10 mg IM Q4H PRN PRN Reason: Agitation Results - Results Labs/Vitals: Laboratory Last Values WBC 13.0 K/mm3 (4.5-11.0) H 09/19/19 21:05 RBC 3.98 M/mm3 (3.65-5.03) 09/19/19 21:05 Hgb 13.5 gm/dl (11.8-15.2) 09/19/19 21:05 Hct 41.8 % (35.5-45.6) 09/19/19 21:05 MCV 105 fl (84-94) H 09/19/19 21:05 MCH 34 pg (28-32) H 09/19/19 21:05 MCHC 32 % (32-34) 09/19/19 21:05 RDW 13.7 % (13.2-15.2) 09/19/19 21:05 Plt Count 239 K/mm3 (140-440) 09/19/19 21:05 Lymph # Decoration Checker 09/19/19 21:05 Add Manual Diff Complete 09/19/19 21:05 Total Counted 100 09/19/19 21:05 Seg Neuts % (Manual) 53.0 % (40.0-70.0) 09/19/19 21:05 Band Neutrophils % 0 % 09/19/19 21:05 Lymphocytes % (Manual) 33.0 % (13.4-35.0) 09/19/19 21:05 Reactive Lymphs % (Man) 0 % 09/19/19 21:05 Monocytes % (Manual) 11.0 % (0.0-7.3) H 09/19/19 21:05 Eosinophils % (Manual) 3.0 % (0.0-4.3) 09/19/19 21:05 Basophils % (Manual) 0 % (0.0-1.8) 09/19/19 21:05 Metamyelocytes % 0 % 09/19/19 21:05 Myelocytes % 0 % 09/19/19 21:05 Promyelocytes % 0 % 09/19/19 21:05 Blast Cells % 0 % 09/19/19 21:05 Nucleated RBC % Not Reportable 09/19/19 21:05 Seg Neutrophils # Man 6.9 K/mm3 (1.8-7.7) 09/19/19 21:05 Band Neutrophils # 0.0 K/mm3 09/19/19 21:05 Lymphocytes # (Manual) 4.3 K/mm3 (1.2-5.4) 09/19/19 21:05 Abs React Lymphs (Man) 0.0 K/mm3 09/19/19 21:05 Monocytes # (Manual) 1.4 K/mm3 (0.0-0.8) H 09/19/19 21:05 Eosinophils # (Manual) 0.4 K/mm3 (0.0-0.4) 09/19/19 21:05 Basophils # (Manual) 0.0 K/mm3 (0.0-0.1) 09/19/19 21:05 Metamyelocytes # 0.0 K/mm3 09/19/19 21:05 Myelocytes # 0.0 K/mm3 09/19/19 21:05 Promyelocytes # 0.0 K/mm3 09/19/19 21:05 Blast Cells # 0.0 K/mm3 09/19/19 21:05 WBC Morphology Not Reportable 09/19/19 21:05 Hypersegmented Neuts Not Reportable 09/19/19 21:05 Hyposegmented Neuts Not Reportable 09/19/19 21:05 Hypogranular Neuts Not Reportable 09/19/19 21:05 Smudge Cells Not Reportable 09/19/19 21:05 Toxic Granulation Not Reportable 09/19/19 21:05 Toxic Vacuolation Not Reportable 09/19/19 21:05 Dohle Bodies Not Reportable 09/19/19 21:05 Pelger-Huet Anomaly Not Reportable 09/19/19 21:05 [place] Rods Not Reportable 09/19/19 21:05 Platelet Estimate Consistent w auto 09/19/19 21:05 Clumped Platelets Not Reportable 09/19/19 21:05 Plt Clumps, EDTA Not Reportable 09/19/19 21:05 Large Platelets Not Reportable 09/19/19 21:05 Giant Platelets Not Reportable 09/19/19 21:05 Platelet Satelliting Not Reportable 09/19/19 21:05 Plt Morphology Comment Not Reportable 09/19/19 21:05 RBC Morphology Not Reportable 09/19/19 21:05 Dimorphic RBCs Not Reportable 09/19/19 21:05 Polychromasia Not Reportable 09/19/19 21:05 Hypochromasia Not Reportable 09/19/19 21:05 Poikilocytosis Not Reportable 09/19/19 21:05 Anisocytosis 1+ 09/19/19 21:05 Microcytosis Not Reportable 09/19/19 21:05 Macrocytosis Not Reportable 09/19/19 21:05 Spherocytes Not Reportable 09/19/19 21:05 Pappenheimer Bodies Not Reportable 09/19/19 21:05 Sickle Cells Not Reportable 09/19/19 21:05 Target Cells Not Reportable 09/19/19 21:05 Tear Drop Cells Not Reportable 09/19/19 21:05 Ovalocytes Not Reportable 09/19/19 21:05 Helmet Cells Not Reportable 09/19/19 21:05 [place] Bodies Not Reportable 09/19/19 21:05 [place] Rings Not Reportable 09/19/19 21:05 [place] Cells Not Reportable 09/19/19 21:05 Bite Cells Not Reportable 09/19/19 21:05 Crenated Cell Not Reportable 09/19/19 21:05 Elliptocytes Not Reportable 09/19/19 21:05 Acanthocytes (Spur) Not Reportable 09/19/19 21:05 Rouleaux Not Reportable 09/19/19 21:05 Hemoglobin C Crystals Not Reportable 09/19/19 21:05 Schistocytes Not Reportable 09/19/19 21:05 Malaria parasites Not Reportable 09/19/19 21:05 [place] Bodies Not Reportable 09/19/19 21:05 Hem Pathologist Commnt No 09/19/19 21:05 Sodium 140 mmol/L (137-145) 09/19/19 21:05 Potassium 4.4 mmol/L (3.6-5.0) 09/19/19 21:05 Chloride 100.7 mmol/L (98-107) 09/19/19 21:05 Carbon Dioxide 25 mmol/L (22-30) 09/19/19 21:05 Anion Gap 19 mmol/L 09/19/19 21:05 BUN 14 mg/dL (9-20) 09/19/19 21:05 Creatinine 0.9 mg/dL (0.8-1.5) 09/19/19 21:05 Estimated GFR > 60 ml/min 09/19/19 21:05 BUN/Creatinine Ratio 16 % 09/19/19 21:05 Glucose 145 mg/dL (75-100) H 09/19/19 21:05 POC Glucose 157 (70-105) H 09/19/19 22:02 Hemoglobin A1c 4.9 % (4-6) 09/19/19 21:05 Calcium 9.4 mg/dL (8.4-10.2) 09/19/19 21:05 Total Bilirubin 0.50 mg/dL (0.1-1.2) 09/19/19 21:05 AST 33 units/L (5-40) 09/19/19 21:05 ALT 15 units/L (7-56) 09/19/19 21:05 Alkaline Phosphatase 73 units/L (35-129) 09/19/19 21:05 Total Protein 7.5 g/dL (6.3-8.2) 09/19/19 21:05 Albumin 3.3 g/dL (3.9-5) L 09/19/19 21:05 Albumin/Globulin Ratio 0.8 % 09/19/19 21:05 Triglycerides 59 mg/dL (2-149) 09/19/19 21:05 Cholesterol 149 mg/dL (50-199) 09/19/19 21:05 LDL Cholesterol Direct 92 mg/dL (50-130) 09/19/19 21:05 HDL Cholesterol 49 mg/dL (40-59) 09/19/19 21:05 Cholesterol/HDL Ratio 3.04 % 09/19/19 21:05 TSH 4.370 mlU/mL (0.270-4.200) H 09/19/19 21:05 Urine Color Yellow (Yellow) 09/19/19 Unknown Urine Turbidity Clear (Clear) 09/19/19 Unknown Urine pH 8.0 (5.0-7.0) H 09/19/19 Unknown Ur Specific [place] 1.009 (1.003-1.030) 09/19/19 Unknown Urine Protein <15 mg/dl mg/dL (Negative) 09/19/19 Unknown Urine Glucose (UA) Neg mg/dL (Negative) 09/19/19 Unknown Urine Ketones Neg mg/dL (Negative) 09/19/19 Unknown Urine Blood Neg (Negative) 09/19/19 Unknown Urine Nitrite Neg (Negative) 09/19/19 Unknown Urine Bilirubin Neg (Negative) 09/19/19 Unknown Urine Urobilinogen < 2.0 mg/dL (<2.0) 09/19/19 Unknown Ur Leukocyte Esterase Neg (Negative) 09/19/19 Unknown Urine WBC (Auto) < 1.0 /HPF (0.0-6.0) 09/19/19 Unknown Urine RBC (Auto) 4.0 /HPF (0.0-6.0) 09/19/19 Unknown Urine Mucus Few /HPF 09/19/19 Unknown Last Vital Signs Temp 98.4 F 09/21/19 22:00 Pulse 70 09/21/19 19:27 Resp 18 09/21/19 22:00 BP 141/62 09/21/19 19:27 Pulse Ox 98 09/21/19 22:00
[2019-09-22] MEDS: SERTRALINE 50 MG TAB PO SCH (11:52)
[2019-09-22] MEDS: lamoTRIgine 25 MG TAB PO SCH (11:53)
[2019-09-22] MEDS: PANTOPRAZOLE 40 MG TAB PO SCH (11:53)
[2019-09-22] MEDS: TIVICAY 50 MG PO SCH (11:54)
[2019-09-22] MEDS: LOSARTAN 25 MG TAB PO SCH (11:54)
[2019-09-22] MEDS: APIXABAN 5 MG TAB PO SCH ×2 (11:55→21:39)
[2019-09-22] MEDS: METOPROLOL SUCCINATE XL 25 MG TAB PO SCH (11:56)
[2019-09-22] MEDS: DESCOVY PO SCH (11:58)
[2019-09-22] MEDS: MIRTAZAPINE 15 MG TAB PO SCH (21:38)
[2019-09-22] MEDS: DOXEPIN 10 MG CAP PO SCH (21:38)
--- NOTE | 2019-09-23 09:59 | Progress Note ---
Subjective Date of service: 09/23/19 Principal diagnosis: Major Depressive Disorder, Severe w/o Psychotic Features Subjective Comment: The patient's medical record was reviewed and the patient's progress was discussed with the nursing staff. The nurse note states, pt is alert and carmelo ented x4, calm and cooperative, bright affect and pleasant, denies si/hi, denies a/v hallucination, medication compliant, self care, takes care of his colostomy and armando, no complaint voiced, on 1litre o2 n/c, slept for 8hrs, no distress notes, will continue to monitor for safety. During my interview with the patient this morning, the patient was sitting in the day room alert oriented x3. He is dressed appropriately for the occasion, he maintains eye contact the patient is noted on oxygen therapy. The patient denies suicidal or homicidal ideations he contracts for safety. He denies visual or auditory hallucinations. Patient reports that he does get depressed at times due to his situation and his diagnosis and states, "I guess this is what got me here". He reports that he is sleeping and eating well. The patient stated, I just want to get home so I can get the PET scan and have this fully removed". Reason for continued inpatient treatment: Preventing decomposition/improving treatment ROS: Constitutional: Negative for weight loss ENT: Negative for stridor Respiratory: Negative for cough or hemoptysis All other systems reviewed and are negative MSE Appearance: Dressed appropriately, good eye contact Behavior: calm and cooperative Mood: "ok" Affect: Congruent Thought Process: goal directed Speech: normal tone and pace Thought Content Suicidal: denies Homicidal: Denies Hallucinations: Denies Delusions: Denies Consciousness: Alert Cognition/Memory: Good Insight/Judgment: Limited Diagnoses: Diagnoses: Major Depressive Disorder, Severe, w/o Psychotic Features Treatment Plan Due to the psychiatric conditions and treatment listed in the Assessment and Plan - the patient requires continued hospitalization. Will continue inpatient treatment to allow for medication adjustment and monitoring. Will continue q15 min safety checks. Will encourage the use of environmental modifications and non-pharmacologic approaches for the management of behavioral and psychological symptoms. Medication adjustment made today: none Will continue current psych medications Monitor for medication side effects. The patient will continue on medications for physical illnesses, and Hospitalist will closely monitor these Continue intensive physical and occupational therapies. Monitor patient's mood, sleep, appetite, and behavior closely. Encourage patient to participate in individual and group therapeutic sessions on the lay. Will provide a safe and therapeutic environment for patient. Medications and Allergies Allergies Allergy/AdvReac Type Severity Reaction Status Date / Time No Known Allergies Allergy Unverified 09/19/19 14:20 Home Medications Medication Instructions Recorded Confirmed Last Taken Type Ambien 10 mg PO HS 09/20/19 09/20/19 Unknown History Ciprofloxacin HCl 500 mg PO BID 09/20/19 09/20/19 Unknown History Descovy 200-25 mg Tablet 1 tab PO DAILY 09/20/19 09/20/19 Unknown History Eliquis 5 mg PO BID 09/20/19 09/20/19 Unknown History Lamictal 25 mg PO DAILY 09/20/19 09/20/19 Unknown History Losartan 25 mg PO DAILY 09/20/19 09/20/19 Unknown History Metoprolol Succinate 25 mg PO DAILY 09/20/19 09/20/19 Unknown History Metronidazole 500 mg PO Q8HR MDD 21 TABLETS 09/20/19 09/20/19 Unknown History Mirtazapine 7.5 mg PO QHS 09/20/19 09/20/19 Unknown History Pantoprazole Sodium 40 mg PO DAILY 09/20/19 09/20/19 Unknown History Sertraline 50 mg PO DAILY 09/20/19 09/20/19 Unknown History Tivicay 50 mg PO DAILY 09/20/19 09/20/19 Unknown History Xanax TAB 0.5 mg PO BID PRN 09/20/19 09/20/19 Unknown History Active Meds: Active Medications Alprazolam (Xanax) 0.5 mg PO BID PRN PRN Reason: Anxiety Apixaban (Eliquis) 5 mg PO Q12HR [facility] Last Admin: 09/22/19 21:39 Dose: 5 mg Documented by: Doxepin HCl (Sinequan) 10 mg PO QHS [facility] Last Admin: 09/22/19 21:38 Dose: 10 mg Documented by: Lamotrigine (Lamictal) 25 mg PO QDAY [facility] Last Admin: 09/22/19 11:53 Dose: 25 mg Documented by: Losartan Potassium (Cozaar) 25 mg PO QDAY [facility] Last Admin: 09/22/19 11:54 Dose: 25 mg Documented by: Melatonin (Melatonin) 5 mg PO QHS PRN PRN Reason: Sleep Last Admin: 09/19/19 22:06 Dose: 5 mg Documented by: Metoprolol Succinate (Metoprolol Xl) 25 mg PO QDAY [facility] Last Admin: 09/22/19 11:56 Dose: 25 mg Documented by: Mirtazapine (Remeron) 7.5 mg PO QHS [facility] Last Admin: 09/22/19 21:38 Dose: 7.5 mg Documented by: Miscellaneous Medication (Descovy 200-25 Mg Tablet) 1 tab PO DAILY [facility] Last Admin: 09/22/19 11:58 Dose: 1 tab Documented by: Miscellaneous Medication (Tivicay) 50 mg PO DAILY [facility] Last Admin: 09/22/19 11:54 Dose: 50 mg Documented by: Pantoprazole Sodium (Protonix) 40 mg PO DAILY [facility] Last Admin: 09/22/19 11:53 Dose: 40 mg Documented by: Sertraline HCl (Zoloft) 100 mg PO QDAY [facility] Last Admin: 09/22/19 11:52 Dose: 100 mg Documented by: Ziprasidone (Geodon) 10 mg IM Q4H PRN PRN Reason: Agitation Results - Results Labs/Vitals: Laboratory Last Values WBC 13.0 K/mm3 (4.5-11.0) H 09/19/19 21:05 RBC 3.98 M/mm3 (3.65-5.03) 09/19/19 21:05 Hgb 13.5 gm/dl (11.8-15.2) 09/19/19 21:05 Hct 41.8 % (35.5-45.6) 09/19/19 21:05 MCV 105 fl (84-94) H 09/19/19 21:05 MCH 34 pg (28-32) H 09/19/19 21:05 MCHC 32 % (32-34) 09/19/19 21:05 RDW 13.7 % (13.2-15.2) 09/19/19 21:05 Plt Count 239 K/mm3 (140-440) 09/19/19 21:05 Lymph # Chief Compliance Officer 09/19/19 21:05 Add Manual Diff Complete 09/19/19 21:05 Total Counted 100 09/19/19 21:05 Seg Neuts % (Manual) 53.0 % (40.0-70.0) 09/19/19 21:05 Band Neutrophils % 0 % 09/19/19 21:05 Lymphocytes % (Manual) 33.0 % (13.4-35.0) 09/19/19 21:05 Reactive Lymphs % (Man) 0 % 09/19/19 21:05 Monocytes % (Manual) 11.0 % (0.0-7.3) H 09/19/19 21:05 Eosinophils % (Manual) 3.0 % (0.0-4.3) 09/19/19 21:05 Basophils % (Manual) 0 % (0.0-1.8) 09/19/19 21:05 Metamyelocytes % 0 % 09/19/19 21:05 Myelocytes % 0 % 09/19/19 21:05 Promyelocytes % 0 % 09/19/19 21:05 Blast Cells % 0 % 09/19/19 21:05 Nucleated RBC % Not Reportable 09/19/19 21:05 Seg Neutrophils # Man 6.9 K/mm3 (1.8-7.7) 09/19/19 21:05 Band Neutrophils # 0.0 K/mm3 09/19/19 21:05 Lymphocytes # (Manual) 4.3 K/mm3 (1.2-5.4) 09/19/19 21:05 Abs React Lymphs (Man) 0.0 K/mm3 09/19/19 21:05 Monocytes # (Manual) 1.4 K/mm3 (0.0-0.8) H 09/19/19 21:05 Eosinophils # (Manual) 0.4 K/mm3 (0.0-0.4) 09/19/19 21:05 Basophils # (Manual) 0.0 K/mm3 (0.0-0.1) 09/19/19 21:05 Metamyelocytes # 0.0 K/mm3 09/19/19 21:05 Myelocytes # 0.0 K/mm3 09/19/19 21:05 Promyelocytes # 0.0 K/mm3 09/19/19 21:05 Blast Cells # 0.0 K/mm3 09/19/19 21:05 WBC Morphology Not Reportable 09/19/19 21:05 Hypersegmented Neuts Not Reportable 09/19/19 21:05 Hyposegmented Neuts Not Reportable 09/19/19 21:05 Hypogranular Neuts Not Reportable 09/19/19 21:05 Smudge Cells Not Reportable 09/19/19 21:05 Toxic Granulation Not Reportable 09/19/19 21:05 Toxic Vacuolation Not Reportable 09/19/19 21:05 Dohle Bodies Not Reportable 09/19/19 21:05 Pelger-Huet Anomaly Not Reportable 09/19/19 21:05 Mingo Rods Not Reportable 09/19/19 21:05 Platelet Estimate Consistent w auto 09/19/19 21:05 Clumped Platelets Not Reportable 09/19/19 21:05 Plt Clumps, EDTA Not Reportable 09/19/19 21:05 Large Platelets Not Reportable 09/19/19 21:05 Giant Platelets Not Reportable 09/19/19 21:05 Platelet Satelliting Not Reportable 09/19/19 21:05 Plt Morphology Comment Not Reportable 09/19/19 21:05 RBC Morphology Not Reportable 09/19/19 21:05 Dimorphic RBCs Not Reportable 09/19/19 21:05 Polychromasia Not Reportable 09/19/19 21:05 Hypochromasia Not Reportable 09/19/19 21:05 Poikilocytosis Not Reportable 09/19/19 21:05 Anisocytosis 1+ 09/19/19 21:05 Microcytosis Not Reportable 09/19/19 21:05 Macrocytosis Not Reportable 09/19/19 21:05 Spherocytes Not Reportable 09/19/19 21:05 Pappenheimer Bodies Not Reportable 09/19/19 21:05 Sickle Cells Not Reportable 09/19/19 21:05 Target Cells Not Reportable 09/19/19 21:05 Tear Drop Cells Not Reportable 09/19/19 21:05 Ovalocytes Not Reportable 09/19/19 21:05 Helmet Cells Not Reportable 09/19/19 21:05 [place] Bodies Not Reportable 09/19/19 21:05 [place] Rings Not Reportable 09/19/19 21:05 Pimento Cells Not Reportable 09/19/19 21:05 Bite Cells Not Reportable 09/19/19 21:05 Crenated Cell Not Reportable 09/19/19 21:05 Elliptocytes Not Reportable 09/19/19 21:05 Acanthocytes (Spur) Not Reportable 09/19/19 21:05 Rouleaux Not Reportable 09/19/19 21:05 Hemoglobin C Crystals Not Reportable 09/19/19 21:05 Schistocytes Not Reportable 09/19/19 21:05 Malaria parasites Not Reportable 09/19/19 21:05 Dennis Bodies Not Reportable 09/19/19 21:05 Hem Pathologist Commnt No 09/19/19 21:05 Sodium 140 mmol/L (137-145) 09/19/19 21:05 Potassium 4.4 mmol/L (3.6-5.0) 09/19/19 21:05 Chloride 100.7 mmol/L (98-107) 09/19/19 21:05 Carbon Dioxide 25 mmol/L (22-30) 09/19/19 21:05 Anion Gap 19 mmol/L 09/19/19 21:05 BUN 14 mg/dL (9-20) 09/19/19 21:05 Creatinine 0.9 mg/dL (0.8-1.5) 09/19/19 21:05 Estimated GFR > 60 ml/min 09/19/19 21:05 BUN/Creatinine Ratio 16 % 09/19/19 21:05 Glucose 145 mg/dL (75-100) H 09/19/19 21:05 POC Glucose 157 (70-105) H 09/19/19 22:02 Hemoglobin A1c 4.9 % (4-6) 09/19/19 21:05 Calcium 9.4 mg/dL (8.4-10.2) 09/19/19 21:05 Total Bilirubin 0.50 mg/dL (0.1-1.2) 09/19/19 21:05 AST 33 units/L (5-40) 09/19/19 21:05 ALT 15 units/L (7-56) 09/19/19 21:05 Alkaline Phosphatase 73 units/L (35-129) 09/19/19 21:05 Total Protein 7.5 g/dL (6.3-8.2) 09/19/19 21:05 Albumin 3.3 g/dL (3.9-5) L 09/19/19 21:05 Albumin/Globulin Ratio 0.8 % 09/19/19 21:05 Triglycerides 59 mg/dL (2-149) 09/19/19 21:05 Cholesterol 149 mg/dL (50-199) 09/19/19 21:05 LDL Cholesterol Direct 92 mg/dL (50-130) 09/19/19 21:05 HDL Cholesterol 49 mg/dL (40-59) 09/19/19 21:05 Cholesterol/HDL Ratio 3.04 % 09/19/19 21:05 TSH 4.370 mlU/mL (0.270-4.200) H 09/19/19 21:05 Urine Color Yellow (Yellow) 09/19/19 Unknown Urine Turbidity Clear (Clear) 09/19/19 Unknown Urine pH 8.0 (5.0-7.0) H 09/19/19 Unknown Ur Specific [place] 1.009 (1.003-1.030) 09/19/19 Unknown Urine Protein <15 mg/dl mg/dL (Negative) 09/19/19 Unknown Urine Glucose (UA) Neg mg/dL (Negative) 09/19/19 Unknown Urine Ketones Neg mg/dL (Negative) 09/19/19 Unknown Urine Blood Neg (Negative) 09/19/19 Unknown Urine Nitrite Neg (Negative) 09/19/19 Unknown Urine Bilirubin Neg (Negative) 09/19/19 Unknown Urine Urobilinogen < 2.0 mg/dL (<2.0) 09/19/19 Unknown Ur Leukocyte Esterase Neg (Negative) 09/19/19 Unknown Urine WBC (Auto) < 1.0 /HPF (0.0-6.0) 09/19/19 Unknown Urine RBC (Auto) 4.0 /HPF (0.0-6.0) 09/19/19 Unknown Urine Mucus Few /HPF 09/19/19 Unknown Last Vital Signs Temp 98.2 F 09/22/19 22:00 Pulse 62 09/22/19 22:00 Resp 18 09/22/19 22:00 BP 137/59 09/22/19 22:00 Pulse Ox 96 09/22/19 22:00
[2019-09-23] MEDS: DESCOVY PO SCH (11:11)
[2019-09-23] MEDS: TIVICAY 50 MG PO SCH (11:13)
[2019-09-23] MEDS: LOSARTAN 25 MG TAB PO SCH (11:14)
[2019-09-23] MEDS: PANTOPRAZOLE 40 MG TAB PO SCH (11:15)
[2019-09-23] MEDS: lamoTRIgine 25 MG TAB PO SCH (11:15)
[2019-09-23] MEDS: APIXABAN 5 MG TAB PO SCH ×2 (11:15→21:57)
[2019-09-23] MEDS: SERTRALINE 50 MG TAB PO SCH (11:15)
[2019-09-23] MEDS: METOPROLOL SUCCINATE XL 25 MG TAB PO SCH (11:16)
[2019-09-23] MEDS: DOXEPIN 10 MG CAP PO SCH (21:57)
[2019-09-23] MEDS: MIRTAZAPINE 15 MG TAB PO SCH (21:57)
--- NOTE | 2019-09-24 09:09 | Discharge Summary ---
Providers - Providers Date of Admission: 09/19/19 14:21 Date of discharge: 09/24/19 Attending physician: CARMITA RAMIREZ MD 09/19/19 14:21 Consult to Physician [CONS] Routine Comment: Consulting Provider: GIUSEPPE MOCK Physician Instructions: Reason For Exam: manage medical conditions 09/20/19 07:49 Consult to Wound/ET Nurse [CONS] Routine Reason For Exam: wound eval Primary care physician: S[employer] PSYCHOLOGY SPECIALIST Hospitalization Condition: Stable Disposition: DC-01 TO HOME OR SELFCARE Allergies/Adverse Reactions: Allergies No Known Allergies Allergy (Unverified 09/19/19 14:20) Vital Signs: Last Vital Signs Temp 98.3 F 09/23/19 09:22 Pulse 70 09/23/19 11:16 Resp 18 09/23/19 09:22 BP 151/62 09/23/19 11:16 Pulse Ox 96 09/22/19 22:00 Last Lab: Laboratory Last Values WBC 13.0 K/mm3 (4.5-11.0) H 09/19/19 21:05 RBC 3.98 M/mm3 (3.65-5.03) 09/19/19 21:05 Hgb 13.5 gm/dl (11.8-15.2) 09/19/19 21:05 Hct 41.8 % (35.5-45.6) 09/19/19 21:05 MCV 105 fl (84-94) H 09/19/19 21:05 MCH 34 pg (28-32) H 09/19/19 21:05 MCHC 32 % (32-34) 09/19/19 21:05 RDW 13.7 % (13.2-15.2) 09/19/19 21:05 Plt Count 239 K/mm3 (140-440) 09/19/19 21:05 Lymph # Engineer Systems 09/19/19 21:05 Add Manual Diff Complete 09/19/19 21:05 Total Counted 100 09/19/19 21:05 Seg Neuts % (Manual) 53.0 % (40.0-70.0) 09/19/19 21:05 Band Neutrophils % 0 % 09/19/19 21:05 Lymphocytes % (Manual) 33.0 % (13.4-35.0) 09/19/19 21:05 Reactive Lymphs % (Man) 0 % 09/19/19 21:05 Monocytes % (Manual) 11.0 % (0.0-7.3) H 09/19/19 21:05 Eosinophils % (Manual) 3.0 % (0.0-4.3) 09/19/19 21:05 Basophils % (Manual) 0 % (0.0-1.8) 09/19/19 21:05 Metamyelocytes % 0 % 09/19/19 21:05 Myelocytes % 0 % 09/19/19 21:05 Promyelocytes % 0 % 09/19/19 21:05 Blast Cells % 0 % 09/19/19 21:05 Nucleated RBC % Not Reportable 09/19/19 21:05 Seg Neutrophils # Man 6.9 K/mm3 (1.8-7.7) 09/19/19 21:05 Band Neutrophils # 0.0 K/mm3 09/19/19 21:05 Lymphocytes # (Manual) 4.3 K/mm3 (1.2-5.4) 09/19/19 21:05 Abs React Lymphs (Man) 0.0 K/mm3 09/19/19 21:05 Monocytes # (Manual) 1.4 K/mm3 (0.0-0.8) H 09/19/19 21:05 Eosinophils # (Manual) 0.4 K/mm3 (0.0-0.4) 09/19/19 21:05 Basophils # (Manual) 0.0 K/mm3 (0.0-0.1) 09/19/19 21:05 Metamyelocytes # 0.0 K/mm3 09/19/19 21:05 Myelocytes # 0.0 K/mm3 09/19/19 21:05 Promyelocytes # 0.0 K/mm3 09/19/19 21:05 Blast Cells # 0.0 K/mm3 09/19/19 21:05 WBC Morphology Not Reportable 09/19/19 21:05 Hypersegmented Neuts Not Reportable 09/19/19 21:05 Hyposegmented Neuts Not Reportable 09/19/19 21:05 Hypogranular Neuts Not Reportable 09/19/19 21:05 Smudge Cells Not Reportable 09/19/19 21:05 Toxic Granulation Not Reportable 09/19/19 21:05 Toxic Vacuolation Not Reportable 09/19/19 21:05 Dohle Bodies Not Reportable 09/19/19 21:05 Pelger-Huet Anomaly Not Reportable 09/19/19 21:05 [place]ingo Rods Not Reportable 09/19/19 21:05 Platelet Estimate Consistent w auto 09/19/19 21:05 Clumped Platelets Not Reportable 09/19/19 21:05 Plt Clumps, EDTA Not Reportable 09/19/19 21:05 Large Platelets Not Reportable 09/19/19 21:05 Giant Platelets Not Reportable 09/19/19 21:05 Platelet Satelliting Not Reportable 09/19/19 21:05 Plt Morphology Comment Not Reportable 09/19/19 21:05 RBC Morphology Not Reportable 09/19/19 21:05 Dimorphic RBCs Not Reportable 09/19/19 21:05 Polychromasia Not Reportable 09/19/19 21:05 Hypochromasia Not Reportable 09/19/19 21:05 Poikilocytosis Not Reportable 09/19/19 21:05 Anisocytosis 1+ 09/19/19 21:05 Microcytosis Not Reportable 09/19/19 21:05 Macrocytosis Not Reportable 09/19/19 21:05 Spherocytes Not Reportable 09/19/19 21:05 Pappenheimer Bodies Not Reportable 09/19/19 21:05 Sickle Cells Not Reportable 09/19/19 21:05 Target Cells Not Reportable 09/19/19 21:05 Tear Drop Cells Not Reportable 09/19/19 21:05 Ovalocytes Not Reportable 09/19/19 21:05 Helmet Cells Not Reportable 09/19/19 21:05 [place] Bodies Not Reportable 09/19/19 21:05 [place] Rings Not Reportable 09/19/19 21:05 Shayy Cells Not Reportable 09/19/19 21:05 Bite Cells Not Reportable 09/19/19 21:05 Crenated Cell Not Reportable 09/19/19 21:05 Elliptocytes Not Reportable 09/19/19 21:05 Acanthocytes (Spur) Not Reportable 09/19/19 21:05 Rouleaux Not Reportable 09/19/19 21:05 Hemoglobin C Crystals Not Reportable 09/19/19 21:05 Schistocytes Not Reportable 09/19/19 21:05 Malaria parasites Not Reportable 09/19/19 21:05 Dennis Bodies Not Reportable 09/19/19 21:05 Hem Pathologist Commnt No 09/19/19 21:05 Sodium 140 mmol/L (137-145) 09/19/19 21:05 Potassium 4.4 mmol/L (3.6-5.0) 09/19/19 21:05 Chloride 100.7 mmol/L (98-107) 09/19/19 21:05 Carbon Dioxide 25 mmol/L (22-30) 09/19/19 21:05 Anion Gap 19 mmol/L 09/19/19 21:05 BUN 14 mg/dL (9-20) 09/19/19 21:05 Creatinine 0.9 mg/dL (0.8-1.5) 09/19/19 21:05 Estimated GFR > 60 ml/min 09/19/19 21:05 BUN/Creatinine Ratio 16 % 09/19/19 21:05 Glucose 145 mg/dL (75-100) H 09/19/19 21:05 POC Glucose 157 (70-105) H 09/19/19 22:02 Hemoglobin A1c 4.9 % (4-6) 09/19/19 21:05 Calcium 9.4 mg/dL (8.4-10.2) 09/19/19 21:05 Total Bilirubin 0.50 mg/dL (0.1-1.2) 09/19/19 21:05 AST 33 units/L (5-40) 09/19/19 21:05 ALT 15 units/L (7-56) 09/19/19 21:05 Alkaline Phosphatase 73 units/L (35-129) 09/19/19 21:05 Total Protein 7.5 g/dL (6.3-8.2) 09/19/19 21:05 Albumin 3.3 g/dL (3.9-5) L 09/19/19 21:05 Albumin/Globulin Ratio 0.8 % 09/19/19 21:05 Triglycerides 59 mg/dL (2-149) 09/19/19 21:05 Cholesterol 149 mg/dL (50-199) 09/19/19 21:05 LDL Cholesterol Direct 92 mg/dL (50-130) 09/19/19 21:05 HDL Cholesterol 49 mg/dL (40-59) 09/19/19 21:05 Cholesterol/HDL Ratio 3.04 % 09/19/19 21:05 TSH 4.370 mlU/mL (0.270-4.200) H 09/19/19 21:05 Urine Color Yellow (Yellow) 09/19/19 Unknown Urine Turbidity Clear (Clear) 09/19/19 Unknown Urine pH 8.0 (5.0-7.0) H 09/19/19 Unknown Ur Specific [place] 1.009 (1.003-1.030) 09/19/19 Unknown Urine Protein <15 mg/dl mg/dL (Negative) 09/19/19 Unknown Urine Glucose (UA) Neg mg/dL (Negative) 09/19/19 Unknown Urine Ketones Neg mg/dL (Negative) 09/19/19 Unknown Urine Blood Neg (Negative) 09/19/19 Unknown Urine Nitrite Neg (Negative) 09/19/19 Unknown Urine Bilirubin Neg (Negative) 09/19/19 Unknown Urine Urobilinogen < 2.0 mg/dL (<2.0) 09/19/19 Unknown Ur Leukocyte Esterase Neg (Negative) 09/19/19 Unknown Urine WBC (Auto) < 1.0 /HPF (0.0-6.0) 09/19/19 Unknown Urine RBC (Auto) 4.0 /HPF (0.0-6.0) 09/19/19 Unknown Urine Mucus Few /HPF 09/19/19 Unknown Core Measure Documentation - Palliative Care Palliative Care/ Comfort Measures: Not Applicable - Core Measures Any of the following diagnoses?: none Exam - Constitutional Vitals: Temp Pulse Resp BP Pulse Ox 98.3 F 70 18 151/62 96 09/23/19 09:22 09/23/19 11:16 09/23/19 09:22 09/23/19 11:16 09/22/19 22:00 - EENT Eyes: Present: PERRL, EOM intact ENT: clear oral mucosa, hearing decreased - Neck Neck: Present: supple, normal ROM - Respiratory Respiratory effort: normal - Abdominal Male genitourinary: Present: normal - Integumentary Integumentary: Present: clear, warm, dry Plan Care Plan Goals: Maintain good and stable mental health Plan of Treatment: The patient should be complaint with medications, not use drugs, and not drink alcohol. The patient understands that if suicidal, homicidal or endangering feelings arise he should seek assistance including but not limited to calling 911, the crisis hotline, and the emergency room. Follow up with outpatient psychiatry and primary doctor in 7 to 14 days Health Concerns: hiv/aids, rectal ca, heartfailure Follow up with: PRIMARY CARE, [Primary Care Provider] - 7 Days Prescriptions: Mirtazapine 7.5 mg PO QHS #30 Doxepin [SINEquan] 10 mg PO QHS #30 capsule lamoTRIgine [LaMICtal] 25 mg PO QDAY #30 tablet Sertraline [Zoloft] 100 mg PO QDAY #30 tablet
[2019-09-24 09:32] VITALS: BP 153/65
[2019-09-24] MEDS: PANTOPRAZOLE 40 MG TAB PO SCH (09:55)
[2019-09-24] MEDS: LOSARTAN 25 MG TAB PO SCH (09:56)
[2019-09-24] MEDS: lamoTRIgine 25 MG TAB PO SCH (09:56)
[2019-09-24] MEDS: METOPROLOL SUCCINATE XL 25 MG TAB PO SCH (09:58)
[2019-09-24] MEDS: SERTRALINE 50 MG TAB PO SCH (09:59)
[2019-09-24] MEDS: DESCOVY PO SCH (09:59)
[2019-09-24] MEDS: TIVICAY 50 MG PO SCH (09:59)
[2019-09-24] MEDS: APIXABAN 5 MG TAB PO SCH (09:59)
== END 2019-09-24 11:58 | disposition home or self-care (01) | DRG 885 ==
LOC: 3A 14:18 → UNDOADMIN 14:18 → 5A 14:21
PROVIDERS: ADMIT Psychiatry & Neurology Psychiatry; ATTEND Psychiatry & Neurology Psychiatry
DX: F32.2 Major depressive disorder, single episode, severe without psychotic features (principal); B20 Human immunodeficiency virus [HIV] disease; I42.9 Cardiomyopathy, unspecified; C18.9 Malignant neoplasm of colon, unspecified; N40.0 Benign prostatic hyperplasia without lower urinary tract symptoms; I10 Essential (primary) hypertension; Z60.2 Problems related to living alone; Z79.899 Other long term (current) drug therapy
CPT/HCPCS: 36415; 80053; 80061; 81001; 82962; 83036; 84443; 85007; 85025; 94760; G0378; J3486